=== PATIENT | male | born 1975 | race Caucasian/White ===

== ENCOUNTER 2020-09-14 09:47 | Outpatient (CLI) | payer OTHER, SELFPAY ==
[2020-09-14 10:08] LABS: Basophils Absolute Auto 0.05 K/mm3 (0.00-0.10); Basophils Percent Auto 0.9 % (0.0-1.0); Eosinophils Absolute Auto 0.28 K/mm3 (0.02-0.50); Hematocrit 48.6 % (40.0-54.0); Hemoglobin 16.2 g/dL (14.0-18.0); Immature Granulocyte Absolute 0.02 K/mm3 (0.00-0.00); Immature Granulocyte Percent A 0.4 % (0.0-0.0); Lymphocytes Absolute Auto 1.31 K/mm3 (1.10-4.50); Lymphocytes Percent Auto 23.4 % (18.0-42.0); Mean Corpuscular HGB Conc 33.3 g/dL (32.0-36.0); Mean Corpuscular Hemoglobin 30.3 pg (27.0-31.0); Mean Corpuscular Volume 90.8 fL (78.0-102.0); Mean Platelet Volume 8.5 fl (8.7-11.0); Monocytes Absolute Auto 0.49 K/mm3 (0.10-0.90); Monocytes Percent Auto 8.7 % (2.0-11.0); Neutrophils Absolute Auto 3.5 K/mm3 (1.7-7.2); Neutrophils Percent Auto 61.6 % (50.0-70.0); Platelet Count Result 225 K/mm3 (150-420); Red Blood Count 5.35 M/mm3 (4.70-6.10); Red Cell Distribution Width 12.6 % (11.6-14.4); White Blood Count 5.6 K/mm3 (4.8-10.8)
[2020-09-14 11:05] LABS: Alanine Aminotransferase 26 U/L (16-63); Alkaline Phosphatase 67 U/L (46-116); Anion Gap 11 mmol/L (8-16); Aspartate Amino Transferase 14 U/L (15-37); Bilirubin,Total 0.6 mg/dL (0.00-1.00); Blood Urea Nitrogen 15 mg/dL (7-18); Calcium 8.9 mg/dL (8.5-10.1); Carbon Dioxide 29 mmol/L (21-32); Chloride 103 mmol/L (98-108); Cholesterol 198 mg/dL (0-200); Estimated Glomerular Filt Rate > 60; Glucose 88 mg/dL (70-99); HDL Direct 43 mg/dL (40-60); LDL Cholesterol Calculated 140 mg/dL (<130); Osmolality Calculated 295 mOsm/kg (285-295); Potassium 4.1 mmol/L (3.5-5.1); Sodium 143 mmol/L (136-145); Total Protein 7.1 g/dL (6.4-8.2); Triglycerides 73 mg/dL (0-150)
== END 2020-09-14 09:48 | disposition home or self-care (01) ==
PROVIDERS: PCP Nurse Practitioner Family; Visit Provider Nurse Practitioner Family
DX: Z00.00 Encounter for general adult medical examination without abnormal findings (principal); K92.1 Melena; E78.5 Hyperlipidemia, unspecified
CPT/HCPCS: 36415; 80053; 80061; 85025

== ENCOUNTER 2020-11-22 08:22 | Outpatient (CLI) | payer OTHER, SELFPAY ==
[2020-11-23 16:55] LABS: SARS-CoV-2 RNA PCR Negative
== END 2020-11-22 08:23 | disposition home or self-care (01) ==
PROVIDERS: PCP Nurse Practitioner Family; Visit Provider Internal Medicine Critical Care Medicine
DX: Z01.812 Encounter for preprocedural laboratory examination (principal); Z20.822 Contact with and (suspected) exposure to COVID-19
CPT/HCPCS: C9803; U0003; U0005

== ENCOUNTER 2020-11-24 19:59 | Outpatient (CLI) | payer OTHER, SELFPAY ==
--- NOTE | 2020-12-06 18:22 | P.SLEEP_ITS ---
Sleep Study Date of Study: 11/24/20 Ordering Provider: Katarina Douglas Interpreting Physician: lencho Sleep Study Type: CPAP Titration Height: 1.88 m Weight: 92.986 kg Body Mass Index: 26.3 Neck Circumference: 40.64 cm [place]: 13 Reason for Sleep Study Patient's prior home sleep study showed presence of obstructive sleep apnea associated with mild intermittent desaturation. Patient had significant daytime symptomatology. Sleep History History of snoring, poor quality of sleep, daytime fatigue and sleepiness. [place] Sleepiness Scale score of 13/24 consistent with moderate daytime hypersomnolence. [facility] Past Medical History Medical History COPD (chronic obstructive pulmonary disease) Epilepsy GERD (gastroesophageal reflux disease) Hyperlipidemia IBS (irritable bowel syndrome) Major depressive disorder Migraine without aura Social History Social History Smoking status: Never smoker Alcohol intake: current Substance use: never Substance use type: does not use Medications Home Medications Medication Instructions Recorded Confirmed Type No Home Medications 09/14/20 History dicyclomine 20 mg tablet 20 mg PO QID #90 tablet 09/14/20 09/14/20 Rx Sleep Procedure The entire study was diverted to CPAP titration. The patient used air fit F - 20 fullface mask of medium size. Sleep Architecture Total recording time 437 minutes, total sleep time 409 minutes, sleep efficiency REM latency-64Min. Awake after sleep onset 20 minutes, stage N1 7.8%, N2 78%, N3 0.7%, stage R 13.4%. supine sleep 49.2%, supine REM 4.5%.. Respiratory Analysis AASM criteria used. During CPAP titration there were 3 apneas, all central with index 0.4. There were 10 hypopneas with index 1.5 AHI 1.9. REM index 5.5, non-REM index 1.4. Supine index 2.1, nonsupine index 1.7. Arousals Total arousals 100 with index 13.7. Spontaneous arousals 100. Therefore all the arousals were spontaneous and not related to any other activity. Periodic Limb Movements Total leg movements 4 with index 0.6. No PLM. And no arousals due to leg movements. Therefore not clinically relevant. Oximetry Data Mean oxygen saturation 95%, lowest saturation 89% .SaO2<90%-0.1Min. Snoring Profile Snoring was reported as very rare. Cardiac Profile Normal sinus rhythm, mean heart rate 62 beats per minute, range 39 to 99 beats per minute. EEG Profile unremarkable EEG. 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 CPAP titration data - CPAP was started at 5 cm and was increased to 11 cm to control obstructive events. At CPAP of 11 cm 59 minutes and 20 seconds of trial was performed, 39 minutes and 20 seconds of non-REM sleep and 16 minutes and 30 seconds of REM sleep occurred. All of it was in nonsupine position. All obstructive and central events were eliminated with AHI 0. Oxygen saturation remained above 92%, averaging 95%. Sleep efficiency at CPAP of 11 was 94%. In terms of management consider using CPAP of 11 cm with appropriate mask. Follow-up regarding improvement in daytime symptomatology including sleepiness will be essential. In the meantime patient should be advised not to participate in hazardous activities including driving when sleepy.
[2020-12-06 18:26] VITALS: BMI 26.3
== END 2020-11-24 20:00 | disposition home or self-care (01) ==
LOC: CHSCSM 20:00
PROVIDERS: PCP Nurse Practitioner Family; Visit Provider Nurse Practitioner Family
DX: G47.33 Obstructive sleep apnea (adult) (pediatric) (principal)
CPT/HCPCS: 95811

== ENCOUNTER 2023-03-14 11:45 | Emergency (ER) | payer OTHER, SELFPAY ==
[2023-03-14 11:45] VITALS: BP 137/95; PULSE 70; RESP 18; TEMP 36.2; O2SAT 98
[2023-03-14 11:54] VITALS: BP 137/95; PULSE 70; RESP 18; TEMP 36.2; O2SAT 98
--- NOTE | 2023-03-14 12:00 | ED.WOUNDLAC ---
HPI - Wound/Laceration General Chief Complaint: Wound/Laceration Stated Complaint: laceration to side of neck Time Seen by Provider: 03/14/23 11:55 History of Present Illness HPI narrative: 47-year-old male patient is here with a cut to the right side of his neck with piece of electric blade that broke off while he was using get. He states that the piece just have cut him in the area but did not get stuck inside the skin. The bleeding was controlled with pressure. The patient is up-to-date on his tetanus. Related Data Home Medications Medication Instructions Recorded Confirmed No Home Medications 09/14/20 Allergies Allergy/AdvReac Type Severity Reaction Status Date / Time fluoxetine [Prozac] Allergy Intermediate unknown Verified 10/09/21 06:27 sertraline [Zoloft] Allergy Intermediate unknown Verified 10/09/21 06:27 tomato Allergy Intermediate unknown Verified 10/09/21 06:27 Review of Systems Review of Systems: All systems reviewed & are unremarkable except as noted in HPI and below PMFSH Past Medical History Medical History COPD (chronic obstructive pulmonary disease) Epilepsy GERD (gastroesophageal reflux disease) Hyperlipidemia IBS (irritable bowel syndrome) Migraine without aura Social History Social History Smoking status: Never smoker Alcohol intake: current Alcohol use details: social Substance use: never Substance use type: does not use Living arrangements: with family Occupation/Education: occupation Exam Narrative: Alert male patient who appears in no acute distress Stable vital signs. HEENT: atraumatic. Neck: a superficial laceration is noted to the right anterior neck measuring approximately 2 cm. The laceration seems to be almost cauterized by the heat of the broken bleed and on the medial and there is a small opening which is oozing blood. There are no other injuries. The carotid pulses is palpable .The neck is otherwise supple. No respiratory distress. Lungs are clear. The rest of the physical examination is unremarkable. Course Course Emergency Course: Laceration was cleaned and closed with Dermabond and the closure is acceptable. No bleeding is noted now. There is no appearance of hematoma underneath the skin. Vital Signs Vital signs: Vital Signs Temperature 36.2 C L 03/14/23 11:45 Pulse Rate 70 03/14/23 11:45 Respiratory Rate 18 03/14/23 11:45 Blood Pressure 137/95 H 03/14/23 11:45 Pulse Oximetry 98 03/14/23 11:45 Oxygen Delivery Room Air 03/14/23 11:45 Temperature 36.2 C L 03/14/23 11:54 Pulse Rate 70 03/14/23 11:54 Respiratory Rate 18 03/14/23 11:54 Blood Pressure 137/95 H 03/14/23 11:54 Pulse Oximetry 98 03/14/23 11:54 Oxygen Delivery Room Air 03/14/23 11:54 Procedures Laceration Laceration 1: Date: 03/14/23 Time: 12:02 Side (If applicable): right Size (cm): 2 Description: linear and clean Depth: simple, single layer ====== Skin Level ====== Skin layer closed with: dermabond ====== Subcutaneous Layer ====== ====== Muscle Layer ====== ====== Tendon Layer ====== Discharge Plan Discharge Prescriptions: No Action No Home Medications dicyclomine 20 mg tablet 20 mg PO QID Qty: 90 1RF Follow-up/Referrals: Jaswant Schwartz DO [Primary Care Provider] -
--- NOTE | 2023-03-14 12:02 | PC.NURSE ---
erp at bedside applying skin glue.
[2023-03-14 12:25] VITALS: BP 137/95; PULSE 70; RESP 18; TEMP 36.2; O2SAT 97
== END 2023-03-14 12:26 | disposition home or self-care (01) ==
PROVIDERS: Emergency Provider Emergency Medicine; PCP Family Medicine
DX: S11.91XA Laceration without foreign body of unspecified part of neck, initial encounter (principal); J44.9 Chronic obstructive pulmonary disease, unspecified; E78.5 Hyperlipidemia, unspecified; W26.8XXA Contact with other sharp object(s), not elsewhere classified, initial encounter
CPT/HCPCS: 12001; 99282

== ENCOUNTER 2025-01-18 11:51 | Emergency (ER) | payer SELFPAY ==
[2025-01-18] VITALS (8 sets, daily range): BP systolic 110–130; BP diastolic 74–85; PULSE 64–92; RESP 13–23; TEMP 36.5; O2SAT 97–100
--- NOTE | ~2025-01-18 | CT_ITS ---
EXAMINATION: CT brain wo con DATE: 01/18/2025 12:45 INDICATION: Seizure. TECHNIQUE: Computed tomography (CT) of the head was performed without intravenous contrast. The mA wa s adjusted according to patient size. Iterative reconstruction technique was employed. The dose-lengt h product was 681.00 mGy-cm. COMPARISON: None FINDINGS: There is no intracranial hemorrhage, acute infarction, or abnormal intracranial mass lesion . The ventricles are normal in size. The orbits are normal. There is mild mucosal thickening in the p aranasal sinuses. The mastoid air cells are normal. IMPRESSION: 1. Normal brain. Reviewed, dictated and finalized at location A. IMPRESSION: 1. Normal brain.
--- NOTE | ~2025-01-18 | XR_ITS ---
XR chest 2V Ordering provider: Jaun Winchester MD History: 49 years Male with . suspected seizure, syncope . Comparison: November 04, 2017 FINDINGS: MEDIASTINUM: The cardiac silhouette is not enlarged. LUNGS: No infiltrates, effusions or pneumothorax. OTHER: No free air under the diaphragm. IMPRESSION: No acute cardiopulmonary pathology. Reviewed, dictated and finalized at location A.
[2025-01-18 12:03] LABS: Glucose Point of Care 90 mg/dl (65-105)
--- NOTE | 2025-01-18 12:04 | ECG_ITS ---
Test Date: 2025-01-18 12:09:52 Measurements Intervals [place] Rate: 78 P: 59 FL: 170 QRS: 45 QRSD: 99 T: 51 QT: 352 QTc: 403 Interpretive Statements SINUS RHYTHM No previous ECG available for comparison Electronically Signed On 01-18-2025 16:45:55 CDT by Jocy Poe M.D.
[2025-01-18 12:14] LABS: Basophils Absolute Auto 0.1 K/mm3 (0.0-0.1); Basophils Percent Auto 1.1 % (0.2-1.2); Eosinophils Absolute Auto 0.2 K/mm3 (0-0.3); Eosinophils Percent Auto 3.7 % (0-4.4); Immature Granulocyte Absolute 0.04 K/mm3 (0.00-0.031); Immature Granulocyte Percent A 0.7 % (0-0.5); Lymphocytes Absolute Auto 1.28 K/mm3 (0.9-3.2); Lymphocytes Percent Auto 23.5 % (18.3-44.2); Mean Corpuscular HGB Conc 32.6 g/dl (32-36); Monocytes Absolute Auto 0.6 K/mm3 (0.1-0.6); Monocytes Percent Auto 10.8 % (2.6-8.5); Neutrophils Absolute Auto 3.3 K/mm3 (1.3-6.7); Neutrophils Percent Auto 60.2 % (45.5-73.1); Platelet Count Result 211 k/mm3 (150-375); Red Blood Count 5.17 M/mm3 (4.6-6.20); Red Cell Distribution Width 14.1 % (11.5-14.5); White Blood Count 5.4 K/mm3 (4.5-10.0)
[2025-01-18 12:37] LABS: Alanine Aminotransferase 19 U/L (6-50); Albumin Level 3.9 g/dL (3.5-5.1); Alkaline Phosphatase 59 U/L (38-126); Anion Gap 14 mmol/L (4-12); Aspartate Amino Transferase 20 U/L (17-59); Bilirubin,Total 0.4 mg/dL (0.2-1.3); Blood Urea Nitrogen 16 mg/dL (9-20); Calcium 8.5 mg/dL (8.4-10.2); Carbon Dioxide 18 mmol/L (22-30); Chloride 106 mmol/L (98-107); Estimated CRCL calculation 79 ml/min; Estimated Glomerular Filt Rate > 60; Glucose 91 mg/dL (65-110); Potassium 4.2 mmol/L (3.4-5.0); Sodium 138 mmol/L (137-145)
--- NOTE | 2025-01-18 12:41 | PC.NURSE ---
Pt to CT via stretcher on tele and O2 monitor
--- NOTE | 2025-01-18 13:10 | ED_ITS ---
HPI - Seizure General Chief Complaint: Seizure Stated Complaint: ?seizure Time Seen by Provider: 01/18/25 11:59 History of Present Illness HPI Narrative: 49-year-old male presenting to the emergency department after a syncopal event. Patient had a witnessed syncopal event while he was at an antique shop. He felt like he was going to pass out and noted that he was hypoglycemic and this has happened to him before. He had a brief loss of consciousness and woke up without any concern or postictal phase. Bystander was concerned about potential seizure activity although patient tells me he has remote history of epilepsy does not take any medications for this is been seizure-free for many years. Patient thinks he was hypoglycemic and was actually getting ready to eat some candy. He was noted to be hypoglycemic in the 60 range by EMS and provided D10. Presently normal glucose range, normal vital signs. States that he did fall after the syncopal event with right-sided head trauma but denies any vision changes, headache, neck pain. No neurological complaints at this time. Was otherwise in his normal state of health. Is not diabetic, does not take any insulin. He states he did not eat breakfast this morning. His family at bedside corroborates the story and states that there was no seizure activity. Patient denies any complaints at this time and states that he feels well. Related Data Allergies Allergy/AdvReac Type Severity Reaction Status Date / Time sertraline (Zoloft) Allergy Intermediate unknown Verified 01/18/25 12:02 Review of Systems 2 Review of Systems: As reviewed above in HPI [facility] Past Medical History Medical History IBS (irritable bowel syndrome) COPD (chronic obstructive pulmonary disease) GERD (gastroesophageal reflux disease) Hyperlipidemia Migraine without aura Epilepsy Surgical History Surgical History H/O colonoscopy ~2016 Family History Family History Other Carcinoma of colon Heart disease Hypertension Social History Social History Smoking status: Never smoker Alcohol intake: current Alcohol use details: social Substance use: never Substance use type: does not use Lack of Transportation: No Lack of Food: Never True Current Housing: I Have Housing Concerned About Future Housing: No Difficulty Paying Gas/Electric Bills: No Difficulty Paying for Meds: No Currently Unemployed: No Education: Bachelor's Degree Difficulty w/ Childcare or Family Care: No Living arrangements: with family Occupation/Education: occupation Exam 2 Narrative: GENERAL: [Well-appearing, well-nourished, and in no acute distress.] HEAD: Normocephalic, right-sided parietal scalp hematoma without any active bleeding. EYES: [PERRLA and EOMI.] ENT: Nares clear, no rhinorrhea or epistaxis. Mucous membranes moist. NECK: Supple. CHEST: [Clear to auscultation. No respiratory distress.] HEART: [Regular rate and rhythm]. No murmur heard. [Normal peripheral pulses.] ABDOMEN: [Soft, nondistended], [nontender], [No rigidity or guarding] EXTREMITIES: Normal range of motion. [No edema.] SKIN: Warm, dry, no rash. NEURO: [No focal deficits]. Alert and oriented [x3.] PSYCH: [Normal mood and affect.] Course Vital Signs Vital signs: Vital Signs Temperature 36.5 C 01/18/25 11:43 Pulse Rate 92 01/18/25 11:43 Respiratory Rate 13 01/18/25 11:43 Blood Pressure 130/80 01/18/25 11:43 Pulse Oximetry 97 01/18/25 11:43 Oxygen Delivery Room Air 01/18/25 11:43 Temperature 36.5 C 01/18/25 11:43 Pulse Rate 64 01/18/25 13:52 Respiratory Rate 23 H 01/18/25 13:52 Blood Pressure 117/74 01/18/25 13:52 Pulse Oximetry 100 01/18/25 13:52 Oxygen Delivery Room Air 01/18/25 12:12 MDM - Seizure MDM Narrative Medical decision making narrative: 49-year-old male presenting to the emergency department after a syncopal event at a local shop. He states he felt the symptoms of feeling he was going to pass out and noted that he was hypoglycemic. He is not a diabetic, does not take insulin. Blood sugar was 60 when EMS arrived. He did have a syncopal event with trauma afterwards and has a hematoma on the right-sided scalp. No active bleeding. He is mentating appropriately presently. No seizure activity according to his father at bedside. Patient has no complaints at this time and states that he feels at his normal state of health. Has normal glucose on arrival. Seizure precautions were ordered given report of a potential seizure although family and patient deny this. There was no postictal phase and patient has no symptoms of neurological complaints or symptoms at this time. CT of the head was obtained, EKG ordered, CBC CMP, for glucose obtained. Workup shows no leukocytosis or anemia. Normal platelet count. Unremarkable head CT. Normal chest x-ray. EKG without any ectopy or ischemia. No interval anomalies. Normal glucose. Normal vital signs on repeat exam. Patient was stable here without any recurrence of symptoms for several hours. He is safe and stable for discharge home at this time with PCP follow-up. Patient provided return precautions. Medical Records Attestation: I reviewed the patient's medical records. Lab Data Attestation: I reviewed the patient's lab results. 01/18/25 12:09 01/18/25 12:09 Labs: Lab Results 01/18/25 01/18/25 Range/Units 12:00 12:09 WBC 5.4 (4.5-10.0) K/mm3 RBC 5.17 (4.6-6.20) M/mm3 Hgb 15.0 (14.0-18.0) g/dL Hct 46.0 (42.0-52.0) % MCV 89.0 (80-100) fl MCH 29.0 (26-34) pg MCHC 32.6 (32-36) g/dl RDW 14.1 (11.5-14.5) % Plt Count 211 (150-375) k/mm3 MPV 9.0 (7.4-10.4) fl Immature Gran % (Auto) 0.7 H (0-0.5) % Neut % (Auto) 60.2 (45.5-73.1) % Lymph % (Auto) 23.5 (18.3-44.2) % Alexander % (Auto) 10.8 H (2.6-8.5) % Eos % (Auto) 3.7 (0-4.4) % Baso % (Auto) 1.1 (0.2-1.2) % Lymph # (Auto) 1.28 (0.9-3.2) K/mm3 Alexander # (Auto) 0.6 (0.1-0.6) K/mm3 Eos # (Auto) 0.2 (0-0.3) K/mm3 Baso # (Auto) 0.1 (0.0-0.1) K/mm3 Abs Immat Gran (auto) 0.04 H (0.00-0.031) K/mm3 Absolute Neuts (auto) 3.3 (1.3-6.7) K/mm3 Absolute Nucleated RBC 0.000 (0.0-0.012) K/mm3 Nucleated RBC % 0.0 (0.0-0.2) % Sodium 138 (137-145) mmol/L Potassium 4.2 (3.4-5.0) mmol/L Chloride 106 (98-107) mmol/L Carbon Dioxide 18 L (22-30) mmol/L Anion Gap 14 H (4-12) mmol/L BUN 16 (9-20) mg/dL Creatinine 1.18 (0.7-1.3) mg/dL Estim Creat Clear Calc 79 ml/min Estimated GFR > 60 (59 - ) Glucose 91 (65-110) mg/dL POC Capillary Glucose 90 (65-105) mg/dl Calcium 8.5 (8.4-10.2) mg/dL Total Bilirubin 0.4 (0.2-1.3) mg/dL AST 20 (17-59) U/L ALT 19 (6-50) U/L Alkaline Phosphatase 59 (38-126) U/L Total Protein 7.0 (6.3-8.2) g/dL Albumin 3.9 (3.5-5.1) g/dL Imaging Data Attestation: I personally reviewed and interpreted this imaging study as follows: My impression: Impressions Head CT 01/18/25 12:47 IMPRESSION: 1. Normal brain. Chest X-Ray 01/18/25 13:01 IMPRESSION: No acute cardiopulmonary pathology. ECG Data EKG #1: Attestation: I personally reviewed and interpreted this ECG as follows: ECG completion date: 01/18/25 ECG completion time: 12:09 Prior ECG tracings: not available for review Interpretation: Regular rate, regular rhythm, normal axis. QTC 4 3, QRS 99, TN interval 170. No ST segment elevations, depressions or inversions. Normal sinus rhythm, no previous EKG for comparison. Discharge Plan Discharge Clinical Impression: Syncope, Hypoglycemia Patient Disposition: Home, Self-Care Condition: Stable Instructions: Antibiotic Form Additional Instructions: Your laboratory studies and imaging were all reassuring. Follow-up with regular doctor. Return with any new or worsening or recurrent concerns. Patient Language: Citizen [place] Prescriptions: No Action dicyclomine 20 mg tablet 20 mg PO QID Qty: 90 3RF Follow-up/Referrals: Katarina Douglas NP [Primary Care Provider] - Time of Disposition: 14:04
[2025-01-18 14:08] LABS: Glucose Point of Care 81 mg/dl (65-105)
--- OUTSIDE RECORDS SUMMARY | 2025-01-18 15:27 | XMS_ITS | Clinical Summary ---
Author Organization [facility] Address [facility] [place] [address] Care Team Providers Care Cokeman Name Role Phone Jd Liang MD Primary Care Provider Lito Toure MD Unavailable Unavailable Allergies Active Allergy Reactions Criticality Noted Date Comments Topiramate Seizure High 12/09/2017 Sertraline Seizure High 12/09/2017 Medications albuterol sulfate HFA 108 (90 BASE) MCG/ACT inhaler Inhale 2 puffs into the lungs every 6 (six) hours as needed for Wheezing. 12/09/2017 Active Probiotic Product (FLORAJEN BIFIDOBLEND) Cap Take 1 capsule by mouth daily. 12/09/2017 Active omeprazole 20 MG capsule Take 1 capsule (20 mg total) by mouth daily. 90 capsule 3 12/09/2017 Active [place]-3 Fatty Acids (FISH OIL) 500 MG capsule Take 1,500 mg by mouth daily. Active Active Problems Problem Noted Date Diagnosed Date Seizure ([facility]/HCC) 09/25/2019 Exertional dyspnea 12/11/2017 Polycythemia 12/11/2017 Syncope 12/11/2017 Family History Medical History Relation Comments Diabetes Father Heart Disease Father Prostate Cancer Father Throat cancer Father COPD Mother Ovarian and Cervical cancer Mother Relation Status Comments Father Mother Social History Tobacco Use Types Packs/Day Years Used Date Smoking Tobacco: Never Smokeless Tobacco: Never Alcohol Use Standard Drinks/Week Comments No 0 (1 standard drink = 0.6 oz pur e alcohol) Sex and Gender Information Value Date Recorded Sex Assigned at Not on file Legal Sex Male 8:01 AM HEDIS COORDINATOR Gender Identity Not on file Sexual Orientation Not on file 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 Not on file Not on file Not on file Last Filed Vital Signs Vital Sign Reading Time Taken Comments Blood Pressure 119/82 09/27/2019 8:36 AM HEDIS COORDINATOR Pulse 58 09/27/2019 8:36 AM HEDIS COORDINATOR Temperature 36.5 C (97.7 F) 09/27/2019 8:36 AM HEDIS COORDINATOR Respiratory Rate 20 09/27/2019 8:36 AM HEDIS COORDINATOR Oxygen Saturation 97% 09/27/2019 8:36 AM HEDIS COORDINATOR Inhaled Oxygen Concentration - - Weight 90.7 kg (200 lb) 09/25/2019 2:05 PM HEDIS COORDINATOR Height 188 cm (6' 2 ) 09/25/2019 2:05 PM HEDIS COORDINATOR Body Mass Index 25.68 09/25/2019 2:05 PM HEDIS COORDINATOR Plan of Treatment Health Maintenance Due Date Last Done Comments Colorectal Cancer Screening Colonoscopy (10 Years) 1973 Annual Physical 1976 Hepatitis C 1991 Hepatitis B Vaccines (1 of 3 - 19+ 3-dose series) 1992 Zoster Vaccines (1 of 2) 2023 COVID-19 Vaccine (1 - 2023-2 5 season) 2024 Influenza Adult (#1) 2024 DTaP, Tdap and Td Vaccines ( 2 - Td or Tdap) 08/31/2028 08/31/2018 Meningococcal B Vaccine Aged Out No l onger eligible based on patient's age to complete this topic Meningococcal Vaccine Aged Out No ronnie jaquelin eligible based on patient's age to complete this topic Pneumococcal Vaccine: Pediat rics (0 to 5 Years) and At-Risk Patients (6 to 64 Years) Aged Out No longer eligi ble based on patient's age to complete this topic RSV Immunizations Under 20 Months Aged Out No longer eligible based on patient's age to complete this topic Insurance [facility] Advance Directives * Full Code (Latest Code Status on File) Date Activated Date Inactivated Comments 09/25/2019 10:47 PM 09/27/2019 1:23 PM Care Teams Cokeman Relationship Specialty Start Date End Date Jd Liang MD [facility] [place] [address] PCP - General FAMILY PRACTICE 12/03/17 Lito Toure MD [facility] [place] [address] Erin Sheet Pile Driver Operator INTERVENTIONAL CARDIOLOGY 12/03/17
--- OUTSIDE RECORDS SUMMARY | 2025-01-18 15:27 | XMS_ITS | Clinical Summary ---
Author Organization [facility] Address [address], [address] [address] Phone Care Team Providers Care Halver Machine Operator Name Role Phone Katarina Douglas ENTRY LEVEL SOFTWARE DEVELOPER, [facility] Primary Care Provi karey Allergies Active Allergy Reactions Criticality Noted Date Comments Fluoxetine Other (see Comments) 11/14/2020 Seizure Sertraline Other (see Comments) 11/14/2020 Seizure Theophylline Other (see Comments) 11/14/2020 Seizure Topiramate Other (see Comments) High 12/09/2017 Seizure Medications Multiple Vitamin (MULTIVITAMIN PO) Take by mouth every morning. Active Probiotic Product (Acidophilus/Go at Milk) Capsule Take 1 Capsule by mouth every morning. 8 Active [place]-3 Fatty Acids (Fish Oil) 500 MG Capsule Take 1,500 mg by mouth every morning. Active dicyclomine (BENTYL) 20 MG Tablet every morning. 1 Active albuterol 108 (90 Base) MCG/ACT Aerosol Solution take 2 Puffs by inhalation every 4 hours as needed. 8 Active Active Problems No known active problems Family History Medical History Relation Name Comments Chronic Obstructive Pulmonary Disease Brother Diabetes Brother Colon Cancer Father Colon Polyps Father Diabetes Father Heart Attack Father Hypertension Father Prostate Cancer Father Diabetes Maternal Grandfather Heart Disease Maternal Grandfather Breast Cancer Mother Chronic Obstructive Pulmonary Disease Mother Colon Cancer Paternal Aunt Breast Cancer Paternal Grandmother Colon Cancer Paternal Uncle Relation Name Status Comments Brother Father Maternal Grandfather Mother Paternal Aunt Paternal Grandmother Paternal Uncle Social History Tobacco Use Types Packs/Day Years Used Date Smoking Tobacco: Never Smokeless Tobacco: Never Tobacco Cessation:Counseling Given: No Alcohol Use Standard Drinks/Week Comments Not Currently 0 (1 standard drink = 0.6 oz pur e alcohol) Sexually Active Control Partners Comments Yes Sex and Gender Information Value Date Recorded Sex Assigned at Not on file Legal Sex Male 7:21 PM CDT Gender Identity Not on file Sexual Orientation Not on file Last Filed Vital Signs Vital Sign Reading Time Taken Comments Blood Pressure 112/68 11/14/2020 8:45 AM FIELD REP Pulse 54 11/14/2020 8:45 AM FIELD REP Temperature 36 C (96.8 F) 11/14/2020 8:45 AM FIELD REP Respiratory Rate 18 11/14/2020 8:45 AM FIELD REP Oxygen Saturation 98% 11/14/2020 8:45 AM FIELD REP Inhaled Oxygen Concentration - - Weight 93.4 kg (206 lb) 12/20/2020 9:00 AM FIELD REP Height 188 cm (6' 2 ) 12/20/2020 9:00 AM FIELD REP Body Mass Index 26.45 12/20/2020 9:00 AM FIELD REP Plan of Treatment Health Maintenance Due Date Last Done Comments Hepatitis C Virus (HCV) Screening 1973 TdaP Immunization 1973 Hepatitis B Immunization (1 of 3 - 19+ 3-dose series) 1992 Colonoscopy 2018 Colorectal Cancer Screening 2018 Cologuard 2023 Immunochemical Fecal Occult Blood 2023 Pneumococcal Immunization (5 0+ years) (1 of 1 - PCV) 2023 Zoster Immunization (1 of 2) 2023 Influenza Immunization (#1) 2024 SARS-COV-2 Immunization ( season) 2024 09/24/2021, 01/23/2021, 01/02/2021 Respiratory Syncytial Virus (RSV) Immunization (Adult) (1 - 1-dose 75+ series) 2048 Meningococcal Immunization (ACWY) Aged Out No longer eligible b ased on patient's age to complete this topic Rotavirus Immunization Aged Out No lo nger eligible based on patient's age to complete this topic Insurance [employer] Care Teams Halver Machine Operator Relationship Specialty Start Date End Date Katarina Douglas, ENTRY LEVEL SOFTWARE DEVELOPER, ELECTRICAL UNIT REBUILDER [address] [place] [address] PCP - General Advanced Practice Nurse 11/01/20
--- OUTSIDE RECORDS SUMMARY | 2025-01-18 15:27 | XMS_ITS | Encounter Summary ---
Author Organization [facility] - [facility] Address [facility] [place] [address] Care Team Providers Care Rougher Operator Name Role Phone Jd Liang MD Primary Care Provider Lito Toure MD Unavailable Unavailable Encounter Details Date Type Department Care Team (Late st Contact Info) Description 01/31/2020 [employer] Message [facility] [place] 2] Patient Accounts [address] [place] [address] Isaac, [facility] Provider Regarding your past due balance Social History Tobacco Use Types Packs/Day Years Used Date Smoking Tobacco: Never Smokeless Tobacco: Never Alcohol Use Standard Drinks/Week Comments No 0 (1 standard drink = 0.6 oz pur e alcohol) Sex and Gender Information Value Date Recorded Sex Assigned at Not on file Legal Sex Male 8: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 Answer Date of Assessment Author Status No 09/25/2019 9:37 PM ANALYTICAL STATISTICIAN Activ e * Do you have serious difficulty walking or climbing stairs? Answer Date of Assessment Author Status No 09/25/2019 9:37 PM Magnolia Dunn RN Active * Do you have difficulty dressing or bathing? Answer Date of Assessment Author Status No 09/25/2019 9:37 PM Magnolia Dunn RN Active * Because of a physical, mental, or emotional condition, do you have difficulty doing errands alone such as visiting a doctor's office or shopping? Answer Date of Assessment Author Status No 09/25/2019 9:37 PM Magnolia Dunn RN Active documented as of this encounter Mental Status * Because of a physical, mental, or emotional condition, do you have serious difficulty concentrating, remembering, or making decisions? Answer Entry Date Author Status No 09/25/2019 9:37 PM Magnolia Dunn RN Active documented in this encounter Plan of Treatment Not on file documented as of this encounter Visit Diagnoses Not on filedocumented in this encounter Care Teams Rougher Operator Relationship Specialty Start Date End Date Jd Liang MD [address] [place] [address] PCP - General FAMILY PRACTICE 12/03/17 Lito Toure MD [facility] [place] [address] [place] Field Technician INTERVENTIONAL CARDIOLOGY 12/03/17 documented as of this encounter
== END 2025-01-18 14:15 | disposition home or self-care (01) ==
PROVIDERS: Emergency Provider Student in an Organized Health Care Education/Training Program; PCP Nurse Practitioner Family
DX: R55 Syncope and collapse (principal); E16.2 Hypoglycemia, unspecified; J44.9 Chronic obstructive pulmonary disease, unspecified; K21.9 Gastro-esophageal reflux disease without esophagitis; E78.5 Hyperlipidemia, unspecified; G40.909 Epilepsy, unspecified, not intractable, without status epilepticus
CPT/HCPCS: 36415; 70450; 71046; 80053; 82948; 85025; 93005; 99284